=== PATIENT | female | born 1950 | race Caucasian/White ===

== ENCOUNTER 2016-06-04 11:51 | Emergency (ER) | payer OTHER, BC ==
[2016-06-04 12:38] VITALS: BP 141/69; PULSE 91; TEMP 98.4; BMI 32.1
--- NOTE | 2016-06-04 13:27 | PDOC ---
History of Present Illness - General Chief Complaint: Cold Symptoms Stated Complaint: cough, left leg pain, chills Time Seen by Provider: 06/04/16 12:02 History Source: Patient, Old Records Exam Limitations: No Limitations - History of Present Illness Initial Comments: 06/04/16 13:26 65 year old female with past medical history of coronary disease status post stent, congestive heart failure, hypertension, hypothyroidism, von Willebrand's disease, psoriatic arthritis presents to the emergency department at the direction of her wine steward Dr. Brown for evaluation for 3 days of upper respiratory infection-like symptoms. The patient reports of feeling tired and fatigued and with a nonproductive cough. Denies fevers or chills. Also reports 2 days of left lower leg pain. Denies swelling. As of note, in early April, patient has had a total left knee replacement done at [facility]. In early May, patient had developed a pulmonary embolism was started on aspirin and eliquis. She has been adherent to her medications. Her wine steward sent the patient to the ED for an evaluation. 06/04/16 13:27 Pt complained of sore throat as well. Past History - Past Medical History Allergies/Adverse Reactions: Allergies Allergy/AdvReac Type Severity Reaction Status Date / Time ciprofloxacin Allergy Severe Hives Verified 06/04/16 11:52 levofloxacin [From Levaquin] Allergy Severe angioedema Verified 06/04/16 11:52 shellfish derived Allergy Severe Difficulty Verified 06/04/16 11:52 Breathing atorvastatin Allergy Mild Rash Verified 06/04/16 11:52 methotrexate Allergy Mild Nausea Verified 06/04/16 11:52 Penicillins Allergy Mild Hives Verified 06/04/16 11:52 sulfamethoxazole Allergy Mild Rash Verified 06/04/16 11:52 [From Bactrim] trimethoprim [From Bactrim] Allergy Mild Rash Verified 06/04/16 11:52 atorvastatin calcium AdvReac Mild Rash Verified 06/04/16 11:52 [From Lipitor] pravastatin sodium AdvReac Mild Rash Verified 06/04/16 11:52 [From Pravachol] rosuvastatin [Rosuvastatin] AdvReac Mild Rash Verified 06/04/16 11:52 fish AdvReac Swelling Uncoded 06/04/16 11:52 Home Medications: Ambulatory Orders Metoprolol Succinate [Toprol XL -] 25 mg PO DAILY 02/02/14 Potassium Chloride [K-Dur -] 20 meq PO DAILY 11/07/14 Furosemide [Lasix -] 40 mg PO BID@0600,1400 tablet 12/19/15 Levothyroxine [Synthroid -] 25 mcg PO DAILY 12/19/15 Apixaban [Eliquis] 5 mg PO BID 06/04/16 Gabapentin 06/04/16 Tramadol HCl [Ultram -] 50 mg PO PRN PRN 06/04/16 Anemia: No Asthma: No Cancer: No Cardiac Disorders: Yes (VON WILLEBRAND'S,HAD CARDIAC CATH-STENT 2007) CVA: No COPD: No CHF: No Dementia: No Diabetes: No GI Disorders: No Disorders: No HTN: Yes Hypercholesterolemia: No Liver Disease: No Suicide Attempt (Hx): No Seizures: No Thyroid Disease: No Other medical history: pe - Surgical History Abdominal Surgery: No Appendectomy: No Cardiac Surgery: Yes (CARDIAC STENT) Cholecystectomy: No Lung Surgery: No Neurologic Surgery: No Orthopedic Surgery: Yes (BILATERAL KNEE ATHROSCOPIES X2 EACH,RIGHT ROTATOR CUFF REPAIR) - Psycho/Social/Smoking Cessation Hx Anxiety: No Suicidal Ideation: No Smoking Status: No Smoking History: Former smoker Have you smoked in the past 12 months: No Number of Cigarettes Smoked Daily: 0 If you are a former smoker, when did you quit?: 28 YEARS AGO Information on smoking cessation initiated: No Hx Alcohol Use: No Drug/Substance Use Hx: No Substance Use Type: None Hx Substance Use Treatment: No Review of Systems - Review of Systems Able to Perform ROS?: Yes Constitutional: Yes: Symptoms Reported, See HPI HEENTM: No: Symptoms Reported Respiratory: Yes: Symptoms reported, Cough. No: SOB with Exertion, Stridor, Wheezing Cardiac (ROS): No: Symptoms Reported, See HPI, Chest Pain, Edema, Irregular Heart Rate, Lightheadedness, Palpitations, Syncope, Chest Tightness, Other ABD/GI: No: Symptoms Reported, See HPI, Abdominal Distended, Abd. Pain w/ defecation, Blood Streaked Bowels, Constipated, Diarrhea, Difficulty Swallowing , Nausea, Poor Appetite, Poor Fluid Intake, Rectal Bleeding, Vomiting, Indigestion, Abdominal cramping, Tarry Stools, Other : No: Symptoms Reported, See HPI, Burning, Dysuria, Discharge, Frequency, Flank Pain, Hematuria, Incontinence, Pain, Urgency, Testicular Mass, Testicular Swelling, Lesions, Testicular Pain, Other Musculoskeletal: No: Symptoms Reported, See HPI, Back Pain, Gout, Joint Pain, Joint Swelling, Muscle Pain, Muscle Weakness, Neck Pain, Joint Stiffness, Other Integumentary: No: Symptoms Reported, See HPI, Bruising, Change in Color, Change in Hair/Nails, Dryness, Erythema, Flushing, Lesions, Lumps, Pallor, Pruritus, Rash, Sweating, Other Neurological: No: Symptoms reported, See HPI, Headache, Numbness, Paresthesia, Pre-Existing Deficit, Seizure, Tingling, Tremors, Weakness, Unsteady Gait, Ataxia, Dizziness, Other Psychiatric: No: Anxiety, Depression, Frequent Crying, Stressors, Sleep Pattern Change, Emotional Problems, Mood Swings, Change in Appetite, Other Endocrine: No: Symptoms Reported, See HPI, Excessive Sweating, Flushing, Intolerance to Cold, Intolerance to Heat, Increased Hunger, Increased Thirst, Increased Urine, Unexplained Weight Gain, Unexplained Weight Loss, Change in Weight, Other Hematologic/Lymphatic: No: Symptoms Reported, See HPI, Anemia, Blood Clots, Easy Bleeding, Easy Bruising, Bleeding Diathesis, Lymph Node Abnormalities, Swollen Glands, Other *Physical Exam - Vital Signs Last Vital Signs Temp Pulse Resp BP Pulse Ox 98.4 F 91 H 18 141/69 99 06/04/16 11:52 06/04/16 11:52 06/04/16 11:52 06/04/16 11:52 06/04/16 11:52 - Physical Exam General Appearance: Yes: Nourished, Appropriately Dressed. No: Apparent Distress HEENT: positive: EOMI, ALLISON, Pharynx Normal Neck: positive: Supple. negative: Tender Respiratory/Chest: positive: Lungs Clear, Normal Breath Sounds. negative: Chest Tender, Respiratory Distress, Accessory Muscle Use Cardiovascular: positive: Regular Rhythm, Regular Rate, S1, S2. negative: Edema Gastrointestinal/Abdominal: positive: Flat, Soft. negative: Tender, Organomegaly, Pulsatile Mass Rectal Exam: positive: deferred Musculoskeletal: positive: Normal Inspection Extremity: positive: Normal Capillary Refill, Normal Inspection, Normal Range of Motion, Tender, Pelvis Stable Integumentary: positive: Normal Color, Dry, Warm Neurologic: positive: sterilization technician II-XII NML intact, Fully Oriented, Alert, Normal Mood/ Affect, Normal Response, Motor Strength 10/05 ED Treatment Course - LABORATORY CBC & Chemistry Diagram: 06/04/16 13:07 06/04/16 13:07 - ADDITIONAL ORDERS Additional order review: 06/04/16 12:40 Group A Strep Rapid Antigen - Final Throat NEGATIVE FOR THE ANTIGEN OF BETA HEMOLYTIC STREP GROUP A - RADIOLOGY Radiology Studies Ordered: Category Date Time Status CHEST PA & LAT [RAD] Stat Radiology 06/04/16 12:24 Completed Medical Decision Making - Medical Decision Making 06/04/16 13:28 A portion of this note was documented by scribe services under my direction. I have reviewed the details of the note, within reason, and agree with the documentation with the following case summary and management plan written by me. Patient treated in the ED. Nursing notes are reviewed and incorporated into the medical decision-making. Vital signs reviewed. Peripheral IV access obtained by the nurse, laboratory studies are drawn and sent, reviewed and interpreted by myself. Vital Signs Temp Pulse Resp BP Pulse Ox 98.4 F 91 H 18 141/69 99 06/04/16 11:52 06/04/16 11:52 06/04/16 11:52 06/04/16 11:52 06/04/16 11:52 The patient likely presents with a viral syndrome. However, will r/o other acute infectious causes such as strep, PNA, UTI. Labs, chest xray, rapid strep, UA. LLE with pain. Will r/o DVT, though probably unlikely given on eliquis. Will touch base with pt's wine steward DR. Brown with results. 06/04/16 14:20 CBC, BMP 06/04/16 13:07 06/04/16 13:07 CMP Sodium 136 mmol/L (136-145) 06/04/16 13:07 Potassium 3.9 mmol/L (3.5-5.1) 06/04/16 13:07 Chloride 102 mmol/L (98-107) 06/04/16 13:07 Carbon Dioxide 27 mmol/L (22-28) 06/04/16 13:07 Anion Gap 7 (8-16) L 06/04/16 13:07 BUN 17 mg/dl (7-18) 06/04/16 13:07 Creatinine 0.8 mg/dl (0.6-1.3) 06/04/16 13:07 Creat Clearance w eGFR > 60 (>60) 06/04/16 13:07 Random Glucose 103 mg/dl (74-106) 06/04/16 13:07 Calcium 9.8 mg/dl (8.4-10.2) 06/04/16 13:07 Total Bilirubin 0.5 mg/dl (0.2-1.0) D 06/04/16 13:07 AST 23 U/L (10-42) 06/04/16 13:07 ALT 13 U/L (10-40) D 06/04/16 13:07 Alkaline Phosphatase 110 U/L (32-92) H D 06/04/16 13:07 Total Protein 7.9 g/dl (6.4-8.3) 06/04/16 13:07 Albumin 4.7 g/dl (3.5-5.0) 06/04/16 13:07 Urine Test Results Urine Color Yellow 06/04/16 13:07 Urine Appearance Clear 06/04/16 13:07 Urine pH 5.5 (4.5-8) 06/04/16 13:07 Ur Specific [place] 1.010 (1.005-1.025) 06/04/16 13:07 Urine Protein Negative (NEGATIVE) 06/04/16 13:07 Urine Glucose (UA) Negative (NEGATIVE) 06/04/16 13:07 Urine Ketones Negative (NEGATIVE) 06/04/16 13:07 Urine Blood Trace (NEGATIVE) H 06/04/16 13:07 Urine Nitrite Negative (NEGATIVE) 06/04/16 13:07 Urine Bilirubin Negative (NEGATIVE) 06/04/16 13:07 Ur Leukocyte Esterase Negative (NEGATIVE) 06/04/16 13:07 Urine RBC 2-4 /hpf (0-3) 06/04/16 13:07 Urine WBC None seen (3-5) 06/04/16 13:07 Ur Epithelial Cells 3-5 /HPF 06/04/16 13:07 Labs reviewed. Strep negative. Chest xray reviewed and negative. Ultrasound pending, but again low suspicion for DVT and patient already on eliquis. Case discussed with Dr. Brown. She agrees with plan for discharge, supportive care and f/u with PMD. I discussed the physical exam findings, ancillary test results and final diagnoses with the patient. I answered all of the patient's questions. The patient was satisfied with the care received and felt comfortable with the discharge plan and treatment plan. The patient will call their primary care physician within 24 hours to arrange follow-up and will return to the Emergency Department with any new, persistant or worsening symptoms. *DC/Admit/Observation/Transfer Diagnosis at time of Disposition: Viral syndrome - Discharge Dispostion Disposition: HOME Condition at time of disposition: Good Admit: No - Patient Instructions Printed Discharge Instructions: DI for Viral Syndrome Additional Instructions: Please follow up with your primary care physician. Please take a copy of your results to your doctor.
[2016-06-04 13:34] LABS: PH,URINE 5.5 (4.5-8); URINE APPEARANCE Clear; URINE BILIRUBIN Negative (NEGATIVE); URINE GLUCOSE (UA) Negative (NEGATIVE); URINE KETONE Negative (NEGATIVE); URINE LEUK ESTERASE Negative (NEGATIVE); URINE NITRITE Negative (NEGATIVE); URINE PROTEIN Negative (NEGATIVE); URINE UROBILINOGEN 0.2 E.U/dl (0.2-1.0)
[2016-06-04 13:37] LABS: URINE BLOOD TRACE (NEGATIVE); URINE COLOR YELLOW
[2016-06-04 13:40] LABS: EOSINOPHIL 1.7 % (0-4.5); MCH 26.3 pg (25.7-33.7); MCHC 32.6 g/dl (32.0-36.0); MEAN CELL VOLUME 80.4 fl (80-96); MEAN PLT VOLUME 8.6 fl (7.5-11.1); NEUTROPHILS 61.8 % (42.8-82.8); PLATELET COUNT 325 K/MM3 (134-434); WHITE BLOOD COUNT 8.6 K/mm3 (4.0-10.0)
[2016-06-04 13:49] LABS: URINE HYALINE CAST 0-1 /lpf; URINE WBC NONE SEEN (3-5)
[2016-06-04 13:54] LABS: ALBUMIN 4.7 g/dl (3.5-5.0); ALK PHOS 110 U/L (32-92); ANION GAP 7 (8-16); BILIRUBIN,TOTAL 0.5 mg/dl (0.2-1.0); CALCIUM 9.8 mg/dl (8.4-10.2); CO2 27 mmol/L (22-28); CREATININE 0.8 mg/dl (0.6-1.3); GLUCOSE,RANDOM 103 mg/dl (74-106); SGOT/AST 23 U/L (10-42); SGPT/ALT 13 U/L (10-40); TOT PROT 7.9 g/dl (6.4-8.3)
== END 2016-06-04 14:35 | disposition home or self-care (01) ==
LOC: FER 11:51
DX: B34.9 Viral infection, unspecified (principal); Z79.01 Long term (current) use of anticoagulants; I10 Essential (primary) hypertension; D68.0 Von Willebrand disease; Z95.5 Presence of coronary angioplasty implant and graft; Z87.891 Personal history of nicotine dependence
CPT/HCPCS: 36415; 71020-TC; 80053; 81003; 81015; 85025; 87070; 87086; 87430; 93971-TC; 99282-25

== ENCOUNTER 2016-06-25 12:25 | Emergency (ER) | payer OTHER, BC ==
[2016-06-25 12:58] VITALS: BP 130/80; PULSE 100; TEMP 97.9; BMI 30.5
[2016-06-25] MEDS ORDERED: ACETAMINOPHEN 325 MG TABLET (FP) PO ONE (13:15)
[2016-06-25] MEDS ORDERED: METOCLOPRAMIDE HCL INJECTION 10 MG/2 ML VIAL IVPB ONE (13:15)
[2016-06-25] MEDS ORDERED: ACETAMINOPHEN 325 MG TABLET (FP) ONE (13:20)
--- NOTE | 2016-06-25 13:33 | PDOC ---
History of Present Illness - General Chief Complaint: Headache Stated Complaint: HEADACHE Time Seen by Provider: 06/25/16 12:50 History Source: Patient Exam Limitations: No Limitations - History of Present Illness Initial Comments: 06/25/16 13:28 65 year old female with past medical history of coronary disease status post stent, congestive heart failure, hypertension, hypothyroidism Presents to the emergency department for right-sided headache. The patient had an episode of right nostril epistaxis yesterday that to an hour and a half to resolved with pressure. She had another small episode earlier today. However, earlier this morning, she started developing right pressure-like headache with associated photophobia. Reports to 5 out of 10 pain. Was a gradual onset. Patient has of note does have a history of migraines. She is adherent to her eliquis since she was diagnosed with an pulmonary embolism several months ago. She also currently takes aspirin. Past History - Past Medical History Allergies/Adverse Reactions: Allergies Allergy/AdvReac Type Severity Reaction Status Date / Time ciprofloxacin Allergy Severe Hives Verified 06/25/16 12:49 levofloxacin [From Levaquin] Allergy Severe angioedema Verified 06/25/16 12:49 shellfish derived Allergy Severe Difficulty Verified 06/25/16 12:49 Breathing atorvastatin Allergy Mild Rash Verified 06/25/16 12:49 methotrexate Allergy Mild Nausea Verified 06/25/16 12:49 Penicillins Allergy Mild Hives Verified 06/25/16 12:49 sulfamethoxazole Allergy Mild Rash Verified 06/25/16 12:49 [From Bactrim] trimethoprim [From Bactrim] Allergy Mild Rash Verified 06/25/16 12:49 atorvastatin calcium AdvReac Mild Rash Verified 06/25/16 12:49 [From Lipitor] pravastatin sodium AdvReac Mild Rash Verified 06/25/16 12:49 [From Pravachol] rosuvastatin [Rosuvastatin] AdvReac Mild Rash Verified 06/25/16 12:49 rosuvastatin calcium AdvReac Verified 06/25/16 12:49 [From Crestor] fish AdvReac Swelling Uncoded 06/25/16 12:49 Home Medications: Ambulatory Orders Metoprolol Succinate [Toprol XL -] 25 mg PO DAILY 02/02/14 Potassium Chloride [K-Dur -] 20 meq PO DAILY 11/07/14 Levothyroxine [Synthroid -] 25 mcg PO DAILY 12/19/15 Apixaban [Eliquis] 2.5 mg PO BID 06/04/16 Aspirin [Aspirin EC] 81 mg PO DAILY 06/25/16 Furosemide [Lasix -] 40 mg PO DAILY 06/25/16 Anemia: No Asthma: No Cancer: No Cardiac Disorders: Yes (VON WILLEBRAND'S,HAD CARDIAC CATH-STENT 2007) CVA: No COPD: No CHF: No Dementia: No Diabetes: No GI Disorders: No Disorders: No HTN: Yes Hypercholesterolemia: No Liver Disease: No Suicide Attempt (Hx): No Seizures: No Thyroid Disease: No Other medical history: PE OF RIGHT LUNG - Surgical History Abdominal Surgery: No Appendectomy: No Cardiac Surgery: Yes (CARDIAC STENT) Cholecystectomy: No Lung Surgery: No Neurologic Surgery: No Orthopedic Surgery: Yes (BILATERAL KNEE ATHROSCOPIES X2 EACH,RIGHT ROTATOR CUFF REPAIR) - Psycho/Social/Smoking Cessation Hx Anxiety: No Suicidal Ideation: No Smoking Status: No Smoking History: Former smoker Have you smoked in the past 12 months: No Number of Cigarettes Smoked Daily: 0 If you are a former smoker, when did you quit?: 35 YRS AGO Information on smoking cessation initiated: No Hx Alcohol Use: No Drug/Substance Use Hx: No Substance Use Type: None Hx Substance Use Treatment: No Review of Systems - Review of Systems Able to Perform ROS?: Yes Comments:: 06/25/16 13:32 GENERAL/CONSTITUTIONAL: No fever, weakness. HEAD, EYES, EARS, NOSE AND THROAT: No change in vision. No ear pain or discharge. No sore throat. +epistaxis CARDIOVASCULAR: No chest pain or shortness of breath. RESPIRATORY: No cough, wheezing, or hemoptysis. GASTROINTESTINAL: No abdominal pain, nausea, vomiting, diarrhea, or decreased PO intolerance. GENITOURINARY: No dysuria, frequency, or change in urination. MUSCULOSKELETAL: No joint or muscle swelling or pain. No neck or back pain. SKIN: No rash NEUROLOGIC: +headache. No vertigo, loss of consciousness, or change in strength/ sensation. ENDOCRINE: No increased thirst. No abnormal weight change. HEMATOLOGIC/LYMPHATIC: No anemia, easy bleeding, or history of blood clots. ALLERGIC/IMMUNOLOGIC: No hives or skin allergy. *Physical Exam - Vital Signs Last Vital Signs Temp Pulse Resp BP Pulse Ox 97.9 F 100 H 18 130/80 98 06/25/16 12:25 06/25/16 12:25 06/25/16 12:25 06/25/16 12:25 06/25/16 12:25 - Physical Exam Comments: 06/25/16 13:32 GENERAL: Awake, alert, and fully oriented, in no acute distress. HEAD: No signs of trauma EYES: PERRLA, EOMI, sclera anicteric, conjunctiva clear ENT: Auricles normal inspection, hearing grossly normal, nares patent, oropharynx clear without exudates. Nostrils with some mild irritation of the right interior septum. No bleeding at this time. NECK: Normal ROM, supple, no lymphadenopathy, JVD, or masses LUNGS: Breath sounds equal, clear to auscultation bilaterally. No wheezes, and no crackles HEART: Regular rate and rhythm, normal S1 and S2, no murmurs, rubs or gallops ABDOMEN: Soft, nontender, normoactive bowel sounds. No guarding, no rebound. No masses EXTREMITIES: Normal range of motion, no edema. No clubbing or cyanosis. No cords, erythema, or tenderness NEUROLOGICAL: Cranial nerves II through XII intact. Normal speech, normal gait. No pronator drift. Sensation intact throughout. 5/5 strength upper and lower extremities. SKIN: Warm, Dry, normal turgor, no rashes or lesions noted. ED Treatment Course - LABORATORY CBC & Chemistry Diagram: 06/25/16 13:30 06/25/16 13:30 - RADIOLOGY Radiology Studies Ordered: Category Date Time Status HEAD CT WITHOUT CONTRAST [CT] Stat CT Scan 06/25/16 13:15 Ordered Medical Decision Making - Medical Decision Making 06/25/16 13:33 A portion of this note was documented by scribe services under my direction. I have reviewed the details of the note, within reason, and agree with the documentation with the following case summary and management plan written by me. Patient treated in the ED. Nursing notes are reviewed and incorporated into the medical decision-making. Vital signs reviewed. Peripheral IV access obtained by the nurse, laboratory studies are drawn and sent, reviewed and interpreted by myself. Vital Signs Temp Pulse Resp BP Pulse Ox 97.9 F 100 H 18 130/80 98 06/25/16 12:25 06/25/16 12:25 06/25/16 12:25 06/25/16 12:25 06/25/16 12:25 I suspect that the patient is likely having a migraine. However, with the epistaxis (now resolved) and on eliquis and hx of von Willebrand's, will obtain a head CT to r/o ICH. Labs, treat headache and reassess. 06/25/16 14:39 CBC, BMP 06/25/16 13:30 06/25/16 13:30 CMP Sodium 139 mmol/L (136-145) 06/25/16 13:30 Potassium 4.1 mmol/L (3.5-5.1) 06/25/16 13:30 Chloride 107 mmol/L (98-107) 06/25/16 13:30 Carbon Dioxide 29 mmol/L (22-28) H 06/25/16 13:30 Anion Gap 3 (8-16) L 06/25/16 13:30 BUN 19 mg/dl (7-18) H 06/25/16 13:30 Creatinine 0.7 mg/dl (0.6-1.3) 06/25/16 13:30 Creat Clearance w eGFR > 60 (>60) 06/25/16 13:30 Random Glucose 111 mg/dl (74-106) H 06/25/16 13:30 Calcium 9.3 mg/dl (8.4-10.2) 06/25/16 13:30 Total Bilirubin 0.3 mg/dl (0.2-1.0) D 06/25/16 13:30 AST 19 U/L (10-42) 06/25/16 13:30 ALT 15 U/L (10-40) 06/25/16 13:30 Alkaline Phosphatase 104 U/L (32-92) H 06/25/16 13:30 Total Protein 7.2 g/dl (6.4-8.3) 06/25/16 13:30 Albumin 4.2 g/dl (3.5-5.0) 06/25/16 13:30 CT head with no bleeds. Stable meningioma. The patient's results were given to the patient. She reports feeling significantly better including her photophobia. I suspect that this is a migraine. The results of the meningioma was given to the patient. I have discussed the case with patient's doctor, Dr. Pablo, was reassured by the imaging results. She states that the patient can hold off on her Eliquis dose tonight but continue taking baby aspirin and they will discuss tomorrow regarding further dosing. Patient verbalizes understanding agrees with plan. Return precautions given. I discussed the physical exam findings, ancillary test results and final diagnoses with the patient. I answered all of the patient's questions. The patient was satisfied with the care received and felt comfortable with the discharge plan and treatment plan. The patient will call their primary care physician within 24 hours to arrange follow-up and will return to the Emergency Department with any new, persistant or worsening symptoms. *DC/Admit/Observation/Transfer Diagnosis at time of Disposition: Epistaxis Migraine Qualifiers: Migraine type: other Status migrainosus presence: without status migrainosus Intractability: not intractable Qualified Code(s): G43.809 - Other migraine, not intractable, without status migrainosus - Discharge Dispostion Disposition: HOME Condition at time of disposition: Stable Admit: No - Referrals Referrals: Mac Renner MD [Primary Care Provider] - - Patient Instructions Printed Discharge Instructions: DI for Migraine, DI for Nosebleed Additional Instructions: Please hold off on the dose of eliquis tonight. Continue taking the baby aspirin daily. Your head CT shows no bleeds but a stable meningioma. Follow up with DR. Pablo. Use a humidifier. If you have uncontrollable bleeding or headache, please return to the ER for further evaluation.
[2016-06-25 13:51] LABS: BASOPHIL 0.9 % (0-2.0); EOSINOPHIL 3.3 % (0-4.5); MCH 25.7 pg (25.7-33.7); MCHC 32.2 g/dl (32.0-36.0); MEAN CELL VOLUME 79.9 fl (80-96); MEAN PLT VOLUME 8.5 fl (7.5-11.1); NEUTROPHILS 58.7 % (42.8-82.8); PLATELET COUNT 322 K/MM3 (134-434); RDW 13.6 % (11.6-15.6); WHITE BLOOD COUNT 8.2 K/mm3 (4.0-10.0)
[2016-06-25 14:07] LABS: ALBUMIN 4.2 g/dl (3.5-5.0); ALK PHOS 104 U/L (32-92); ANION GAP 3 (8-16); BILIRUBIN,TOTAL 0.3 mg/dl (0.2-1.0); CALCIUM 9.3 mg/dl (8.4-10.2); CO2 29 mmol/L (22-28); CREATININE 0.7 mg/dl (0.6-1.3); GLUCOSE,RANDOM 111 mg/dl (74-106); SGOT/AST 19 U/L (10-42); SGPT/ALT 15 U/L (10-40); TOT PROT 7.2 g/dl (6.4-8.3)
[2016-06-25 15:02] LABS: ACTIVATED PTT 29.1 SECONDS (24.0-38.9)
[2016-06-25 15:06] LABS: INR 1.26 (0.82-1.09); PROTHROMBIN TIME (PATIENT) 13.7 SEC (10.2-13.0)
== END 2016-06-25 14:41 | disposition home or self-care (01) ==
LOC: FER 12:25
PROC: 3E033GC Introduction of Other Therapeutic Substance into Peripheral Vein, Percutaneous Approach (ICD-10-PCS; principal; 2016-06-25)
DX: G43.809 Other migraine, not intractable, without status migrainosus (principal); R04.0 Epistaxis; Z79.82 Long term (current) use of aspirin; Z79.01 Long term (current) use of anticoagulants; Z86.711 Personal history of pulmonary embolism; D68.0 Von Willebrand disease; Z95.5 Presence of coronary angioplasty implant and graft; I10 Essential (primary) hypertension
CPT/HCPCS: 36415; 70450-TC; 80053; 85025; 85610; 85730; 96374; 99283-25

== ENCOUNTER 2017-10-05 14:41 | Observation (INO) | payer OTHER, BC ==
--- NOTE | 2017-10-05 15:40 | PDOC ---
History of Present Illness - General Stated Complaint: HEADACHE AND VISION CHANGE Time Seen by Provider: 10/05/17 14:46 History Source: Patient Exam Limitations: No Limitations - History of Present Illness Initial Comments: 10/05/17 15:46 67yF hx of VWB, Post op PE now off AC, CAD s/p stent in LAD in 2007, HTN, CHF, hyopthryidism presenst with complaint of headache. The patient states that her headache feels like a band around her temples bilaterally and has been intermittent, gradual onset for the past week lasting approximately one to several hours before resolving spontaneously, the patient take a Tylenol without significant improvement. She endorses mild nausea without any vomiting. The patient notes that approximately 3 hours ago she had a brief episode of loss of vision "centrally" and then it migrated to the right visual field, scribing and as a" pixilated [place]" on her right visual field on both left eye and the right eye, she states that the symptoms gradually improved slightly and then recurred again and now has improved again although it is not completely resolved. The patient denies complete vision loss that side just states that it looks like a "pixilated [place]". The patient also endorses a weird sensation around her mouth, though denies any dysarthria. The patient notes possibility of mild sensation loss on her left hand. Patient also endorses some palpitations and notes that she is currently being worked up for possible A. 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 The patient states that on the way to the hospital she developed mild substernal chest pressure with some intermittent shortness of breath. Patient denies any associated diaphoresis, MCADAMS. The patient's primary care doctor is Dr. Renner Cards: Dr. Montes tPA Exclusion Checklist 0-3hr - Time Elapsed Date last known well: 10/05/17 Time last known well: 12:00 Elaspsed time: 4 Day(s) and 20 Hour(s) and 26 Minutes - Thrombolytic Therapy Candidate Is the patient eligible for Thrombolytic Therapy?: No - Relative Exclusion Criteria 0-3h Rapid improvement: Yes Stroke severity too mild: Yes - Ineligibility reason(s) Reasons No tPA given: See reason(s) noted above NIH Stroke Scale - Last Known Well Date/Time & Onset Date Last Known Well: 10/05/17 Time Last Known Well: 12:00 - Initial Evaluation Level of consciousness: Alert Ask patient the month and their age: Answers both correctly Ask patient to open & close eyes; make fist and let go: Obeys both correctly Best gaze (horizontal eye movement): Normal Visual field testing: No visual field loss Facial paresis (Show teeth/raise eyebrows/close eyes tight): Normal symmetrical movement Motor Function: Left Arm: Normal Motor Function: Right Arm: Normal (extends arm 90 (or 45) degrees for 10 seconds without drift Motor Function: Left Leg: Normal (extends leg 30 degrees for 5 seconds without drift) Motor Function: Right Leg: Normal (extends leg 30 degrees for 5 seconds without drift) Limb Ataxia: No ataxia Sensory(Use pinprick test arms,legs,trunk,face/side to side): Mild to moderate decrease in sensation Best language (Describe picture, name items, read sentences): No Aphasia Dysarthria (read several words): Normal articulation Extinction and Inattention: No abnormality - Total Score NIH Stroke Scale Score: 1 Past History - Past Medical History Allergies/Adverse Reactions: Allergies Allergy/AdvReac Type Severity Reaction Status Date / Time ciprofloxacin Allergy Severe Hives Verified 10/05/17 14:57 levofloxacin [From Levaquin] Allergy Severe angioedema Verified 10/05/17 14:57 shellfish derived Allergy Severe Difficulty Verified 10/05/17 14:57 Breathing atorvastatin Allergy Mild Rash Verified 10/05/17 14:57 methotrexate Allergy Mild Nausea Verified 10/05/17 14:57 Penicillins Allergy Mild Hives Verified 10/05/17 14:57 sulfamethoxazole Allergy Mild Rash Verified 10/05/17 14:57 [From Bactrim] trimethoprim [From Bactrim] Allergy Mild Rash Verified 10/05/17 14:57 atorvastatin calcium AdvReac Mild Rash Verified 10/05/17 14:57 [From Lipitor] pravastatin sodium AdvReac Mild Rash Verified 10/05/17 14:57 [From Pravachol] rosuvastatin [Rosuvastatin] AdvReac Mild Rash Verified 10/05/17 14:57 rosuvastatin calcium AdvReac Verified 10/05/17 14:57 [From Crestor] fish AdvReac Swelling Uncoded 10/05/17 14:57 Home Medications: Ambulatory Orders Metoprolol Succinate [Toprol XL -] 25 mg PO BID 02/02/14 Potassium Chloride [K-Dur -] 10 meq PO DAILY 11/07/14 Levothyroxine [Synthroid -] 25 mcg PO DAILY 12/19/15 Aspirin [Aspirin EC] 81 mg PO DAILY 06/25/16 Furosemide [Lasix -] 40 mg PO DAILY 06/25/16 Pramipexole Dihydrochloride [Mirapex -] 0.125 mg PO DAILY #30 tablet 10/06/17 Topiramate 25 mg PO DAILY #60 tablet 10/06/17 Anemia: No Asthma: No Cancer: No Cardiac Disorders: Yes (VON WILLEBRAND'S,HAD CARDIAC CATH-STENT 2007) CVA: No COPD: No CHF: No Dementia: No Diabetes: No GI Disorders: No Disorders: No HTN: Yes Hypercholesterolemia: No Liver Disease: No Seizures: No Thyroid Disease: No - Surgical History Abdominal Surgery: No Appendectomy: No Cardiac Surgery: Yes (CARDIAC STENT) Cholecystectomy: No Lung Surgery: No Neurologic Surgery: No Orthopedic Surgery: Yes (BILATERAL KNEE ATHROSCOPIES X2 EACH,RIGHT ROTATOR CUFF REPAIR) - Suicide/Smoking/Psychosocial Hx Smoking Status: No Smoking History: Former smoker Have you smoked in the past 12 months: No Number of Cigarettes Smoked Daily: 0 If you are a former smoker, when did you quit?: 35 YRS AGO Information on smoking cessation initiated: No Hx Alcohol Use: No Drug/Substance Use Hx: No Substance Use Type: None Hx Substance Use Treatment: No Review of Systems - Review of Systems Able to Perform ROS?: Yes Comments:: 10/05/17 15:46 Constitutional - no reported Fever, Chills, HEENT: +vision changes no reported , sore throat Respiratory: + sob no reported cough, , hemoptysis Cardiac: + chest pain no reported, palpitations, light headedness, leg swelling Abd/GI: +nausea, no reported abd pain, vomiting, blood per rectum, melena, diarrhea : no reported dysuria, frequency, discharge Musculskelatal - no reported back pain, joint swelling skin - no reported bruising, erythema, rash neurological: +headache no reported , numbness, focal weakness, tingling, ataxia, hematologic: no reported easy bruising, easy bleeding *Physical Exam - Vital Signs Last Vital Signs Temp Pulse Resp BP Pulse Ox 98.8 F 93 H 18 108/64 100 10/05/17 14:51 10/05/17 14:51 10/05/17 14:51 10/05/17 14:51 10/05/17 14:51 - Physical Exam Comments: 10/05/17 15:48 GENERAL: The patient is awake, alert, and fully oriented, Nontoxic - in no acute distress. HEAD: Normocephalic, atraumatic. EYES: extraocular movements intact, sclera anicteric, conjunctiva clear. Visual mccracken intact in each quadrant (although the patient notes at vision in her right visual field is not normal) ENT: Normal voice, Moist mucous membranes. NECK: Normal range of motion, supple LUNGS: Breath sounds equal, clear to auscultation bilaterally. No wheezes, no rhonchi, no rales. HEART: Regular rate and rhythm, normal S1 and S2 without murmur, rub or gallop. ABDOMEN: Soft, nontender, normoactive bowel sounds. No guarding, no rebound. No CVA tenderness EXTREMITIES: Normal range of motion, no edema. No clubbing or cyanosis. No cords, erythema, or tenderness. NEUROLOGICAL: No facial assymetry, Normal speech, PSYCH: Normal mood, normal affect. SKIN: Warm, Dry, normal turgor, NEURO: Mental status: The patient is oriented x3. Cranial nerves: No facial asymmetry, cranial nerve exam essentially normal except for mild loss of sensation in the right cheek Motor: The upper extremities are 5 over 5 in all muscle groups. The lower extremities are 5 over 5 in all muscle groups. Negative pronator drift. Sensation: Sensation is intact to light touch throughout. Cerebellar: Ybjhao-enqdjn-eeds is normal in both upper extremities. Gait: Normal. Heel and toe walking are normal. Tandem gait is normal. ED Treatment Course - LABORATORY CBC & Chemistry Diagram: 10/05/17 15:41 10/06/17 07:37 Medical Decision Making - Medical Decision Making 10/05/17 15:31 67yF hx of VWB, Post op PE now off AC, CAD s/p stent in LAD in 2007, HTN, CHF, hyopthryidism presents with multiple complaints including headache, visual disturbance, tingling/numbness in her left upper extremity, chest pain, shortness of breath. Her exam is notable for some subjective visual disturbance in the right visual field as well as diminished sensation in her right cheek and right hand Differential for the [place] patient's symptoms include possible migraine headache with complex features, TIA/CVA, ACS, A. fib, anemia, metabolic derangements, occult infection Will check lab work, EKG, chest x-ray, ua, CT head Place the patient on a monitor Case was discussed with Dr. Montes, agrees that in light of the patient's recent complaint of palpitations and recent Holter monitoring for which she has not yet received results may be prudent to observe the patient for possible TIA with neuro consult The patient's CT has negative we'll give the patient aspirin 10/05/17 17:37 The patient's blood work was reviewed Head is negative for acute changes The patient's EKG noted for sinus rhythm with PVCs Observe for neuro consultation 10/05/17 18:[address] Allen - agree with observation tele will trend trops will consult neuro Case discussed in detail with admitting physician including history, physical exam and ancillary studies. Admitting physician has assumed care for the patient, will follow all pending diagnostics and will complete the evaluation and treatment. *DC/Admit/Observation/Transfer Diagnosis at time of Disposition: Vision changes Chest pain Qualifiers: Chest pain type: unspecified Qualified Code(s): R07.9 - Chest pain, unspecified Headache Qualifiers: Headache type: unspecified Headache chronicity pattern: acute headache Intractability: not intractable Qualified Code(s): R51 - Headache - Discharge Dispostion Disposition: HOME Condition at time of disposition: Stable Decision to Admit order: Yes - Prescriptions - Referrals - Patient Instructions - Post Discharge Activity
[2017-10-05] MEDS ORDERED: METOCLOPRAMIDE HCL INJECTION 10 MG/2 ML VIAL IVPUSH ONE (15:41)
[2017-10-05 15:57] LABS: BASO % 0.9 % (0-2.0); EOS % 2.7 % (0-4.5); HEMATOCRIT 38.4 % (32.4-45.2); HEMOGLOBIN 12.9 GM/dl (10.7-15.3); LYMPH % 24.2 % (8-40); MCH 27.7 pg (25.7-33.7); MCHC 33.7 g/dl (32.0-36.0); MEAN CELL VOLUME 82.2 fl (80-96); MEAN PLT VOLUME 7.9 fl (7.5-11.1); MONO % 7.4 % (3.8-10.2); NEUT % 64.8 % (42.8-82.8); PLATELET COUNT 340 K/MM3 (134-434); RBC 4.66 M/mm3 (3.60-5.2); RDW 13.2 % (11.6-15.6); WHITE BLOOD COUNT 8.4 K/mm3 (4.0-10.8)
[2017-10-05 16:09] LABS: ALBUMIN 4.2 g/dl (3.5-5.0); ALK PHOS 103 U/L (32-92); ANION GAP 6 (8-16); BILIRUBIN,TOTAL 0.5 mg/dl (0.2-1.0); BLOOD UREA NITROGEN 20 mg/dl (7-18); CALCIUM 9.7 mg/dl (8.4-10.2); CHLORIDE 99 mmol/L (98-107); CO2 30 mmol/L (22-28); CREATININE 0.8 mg/dl (0.6-1.3); GLUCOSE,RANDOM 109 mg/dl (74-106); INR 1.13 (0.82-1.09); POTASSIUM 3.8 mmol/L (3.5-5.1); PROTHROMBIN TIME (PATIENT) 12.6 SEC (10.2-13.0); SGOT/AST 19 U/L (10-42); SGPT/ALT 16 U/L (10-40); SODIUM 135 mmol/L (136-145); TOT PROT 7.1 g/dl (6.4-8.3)
--- NOTE | 2017-10-05 19:35 | HP ---
CHIEF COMPLAINT: PCP: Dr. Renner Cardiology: Dr. Montes Roller Printing Supervisor: Dr. Pablo HISTORY OF PRESENT ILLNESS: 67 year-old female with a PMH significant for HTN, HLD, CAD s/p stent (2007), diastolic heart failure, migraines, Von Willenbrand's disease, pulmonary embolism (05/2016, following knee surgery), psoriatic arthritis, and hypothyroidism. Presented to the ED today with a complaint of bilateral temporal headache, intermittent, for the past week, with associated nausea, no vomiting. Three hours before presenting to the ED, while cleaning a closet, the patient reportedly experienced visual disturbance first "centrally" in both eyes , and then in the right visual field of both eyes, which she described as a "pixilated crescent, from 6 to 9." On her way to the hospital she developed mild substernal chest pressure with SOB. Patient further complains of mild sensation loss circumferentially around her mouth. At this time she denies having experienced any symptoms involving her upper or lower extremities. Patient also states she has intermittent palpitations for which she is seeing Dr. Montes. In the past week she wore a Holter monitor, the results have not yet been read. Patient not presently on anticoagulation. After she developed PE in 05/2016, she was placed on ASA and Eliquis by Dr. Pablo. She states she experienced many nosebleeds. Dr. Pablo decided to d/c Eliquis in the first week in August 2017, and her IVC filter was removed in the last week of August 2017. She continues on low-dose ASA. ER course was notable for: (1) Troponin neg x 1 (2) CT head negative for acute pathology (3) MRI brain normal study (Imaging operations lieutenant read) Recent Travel: No PAST MEDICAL HISTORY: Hypertension Hyperlipidemia Coronary artery disease Diastolic heart failure Migraines Von Willebrand disease Pulmonary embolism Psoriatic arthritis Hypothyroidism PAST SURGICAL HISTORY: Cardiac stenting Appendectomy (12/14/15, [facility]) Total left knee replacement (04/2016, [facility]) Social History: Smoking: quit 30 years ago Alcohol: no Drugs: no Family History: Allergies ciprofloxacin Allergy (Severe, Verified 10/05/17 14:57) Hives angio edema levofloxacin [From Levaquin] Allergy (Severe, Verified 10/05/17 14:57) angioedema shellfish derived Allergy (Severe, Verified 10/05/17 14:57) Difficulty Breathing hives atorvastatin Allergy (Mild, Verified 10/05/17 14:57) Rash body stiffness methotrexate Allergy (Mild, Verified 10/05/17 14:57) Nausea diarrhea,tender Penicillins Allergy (Mild, Verified 10/05/17 14:57) Hives sulfamethoxazole [From Bactrim] Allergy (Mild, Verified 10/05/17 14:57) Rash trimethoprim [From Bactrim] Allergy (Mild, Verified 10/05/17 14:57) Rash atorvastatin calcium [From Lipitor] Adverse Reaction (Mild, Verified 10/05/17 14 :57) Rash "body stiffness" pravastatin sodium [From Pravachol] Adverse Reaction (Mild, Verified 10/05/17 14 :57) Rash gi upset rosuvastatin [Rosuvastatin] Adverse Reaction (Mild, Verified 10/05/17 14:57) Rash body stiffness rosuvastatin calcium [From Crestor] Adverse Reaction (Verified 10/05/17 14:57) VISUAL SX fish Adverse Reaction (Uncoded 10/05/17 14:57) Swelling HOME MEDICATIONS: Home Medications Medication Instructions Recorded Metoprolol Succinate [Toprol XL -] 25 mg PO BID 02/02/14 Potassium Chloride [K-Dur -] 10 meq PO DAILY 11/07/14 Levothyroxine [Synthroid -] 25 mcg PO DAILY 12/19/15 Aspirin [Aspirin EC] 81 mg PO DAILY 06/25/16 Furosemide [Lasix -] 40 mg PO DAILY 06/25/16 REVIEW OF SYSTEMS CONSTITUTIONAL: Absent: fever, chills, diaphoresis, generalized weakness, malaise, loss of appetite, weight change HEENT: Absent: rhinorrhea, nasal congestion, throat pain, throat swelling, difficulty swallowing, mouth swelling, ear pain, eye pain, visual changes CARDIOVASCULAR: +palpitations, chest pressure with SOB Absent: syncope, irregular heart rate, lightheadedness, peripheral edema RESPIRATORY: Absent: cough, shortness of breath, dyspnea with exertion, orthopnea, wheezing, stridor, hemoptysis GASTROINTESTINAL: Absent: abdominal pain, abdominal distension, nausea, vomiting, diarrhea, constipation, melena, hematochezia GENITOURINARY: Absent: dysuria, frequency, urgency, hesitancy, hematuria, flank pain, genital pain MUSCULOSKELETAL: Absent: myalgia, arthralgia, joint swelling, back pain, neck pain SKIN: Absent: rash, itching, pallor HEMATOLOGIC/IMMUNOLOGIC: Absent: easy bleeding, easy bruising, lymphadenopathy, frequent infections ENDOCRINE: Absent: unexplained weight gain, unexplained weight loss, heat intolerance, cold intolerance NEUROLOGIC: +bilateral visual changes, headache, paresthesia circumferentially around the mouth Absent: focal weakness, dizziness, unsteady gait, seizure, mental status changes , bladder or bowel incontinence PSYCHIATRIC: Absent: anxiety, depression, suicidal or homicidal ideation, hallucinations. PHYSICAL EXAMINATION Vital Signs - 24 hr 10/05/17 10/05/17 10/05/17 14:51 18:39 19:26 Temperature 98.8 F Pulse Rate 93 H Pulse Rate [ 100 H 92 H Left Radial] Respiratory 18 16 18 Rate Blood Pressure 108/64 Blood Pressure 115/71 121/80 [Right Arm] O2 Sat by Pulse 100 98 98 Oximetry (%) GENERAL: Awake, alert, and fully oriented, in no acute distress. HEAD: Normal with no signs of trauma. EYES: Pupils equal, round and reactive to light, extraocular movements intact, sclera anicteric, conjunctiva clear. No lid lag. NECK: Normal range of motion, supple without lymphadenopathy, JVD, or masses. LUNGS: Breath sounds equal, clear to auscultation bilaterally. No wheezes, and no crackles. No accessory muscle use. HEART: Regular rate and rhythm, normal S1 and S2 without murmur, rub or gallop. ABDOMEN: Soft, nontender, not distended, normoactive bowel sounds, no guarding, no rebound MUSCULOSKELETAL: Normal range of motion at all joints. No bony deformities or tenderness. No CVA tenderness. UPPER EXTREMITIES: 2+ pulses, warm, well-perfused. No cyanosis. No clubbing. No peripheral edema. LOWER EXTREMITIES: 2+ pulses, warm, well-perfused. No calf tenderness. Trace bilateral edema NEUROLOGICAL: Cranial nerves II-XII intact. Normal speech. Normal gait. Laboratory Results - last 24 hr 10/05/17 10/05/17 10/05/17 15:41 15:41 15:41 WBC 8.4 RBC 4.66 Hgb 12.9 Hct 38.4 MCV 82.2 MCH 27.7 MCHC 33.7 RDW 13.2 Plt Count 340 MPV 7.9 Neutrophils % 64.8 Lymphocytes % 24.2 Monocytes % 7.4 Eosinophils % 2.7 Basophils % 0.9 PT with INR 12.6 INR 1.13 Sodium 135 L Potassium 3.8 Chloride 99 Carbon Dioxide 30 H Anion Gap 6 L BUN 20 H Creatinine 0.8 Creat Clearance w eGFR > 60 Random Glucose 109 H Calcium 9.7 Total Bilirubin 0.5 D AST 19 ALT 16 Alkaline Phosphatase 103 H Creatine Kinase 86 Troponin I < 0.03 Total Protein 7.1 Albumin 4.2 Imaging 10/05 CT head: no acute intracranial pathology 10/05 MRI brain: normal study ASSESSMENT/PLAN 67 year-old female with a PMH significant for HTN, HLD, CAD s/p stent (2007), diastolic heart failure, migraines, Von Willenbrand's disease, pulmonary embolism (05/2016, following knee surgery), and psoriatic arthritis. Placed on observation for multiple complaints. Atypical chest pain Palpitations --troponin neg x 1, two pending --CXR unremarkable (my read) --serial ECGs --telemetry monitoring --Dr. Montes following, ongoing workup, Holter monitor results penidng --continue ASA r/o TIA v. CVA --CT head negative --MRI brain negative --discussed anti-coagulation with Dr. Rosales given circumstances of VWD, negative CT and MRI, palpitations (ongoing workup for afib) and h/o PE; he advised ASA only Bilateral temporal headache h/o migraines --with visual changes and nausea, possible migraine with aura --fioricet PRN --neuro consult pending Hypertension --BP stable Hyperlipdemia --not on statin Coronary artery disease --continue metoprolol, ASA Diastolic heart failure --continue lasix, potassium Von Willenbrand's disease --no acute issues Psoriatic arthritis --appears to be on no meds Hypothyroidism --TSH pending --continue levothyroxine DVT prophylaxis: SCDs, oob, ambulation Dispo: continues to require observation. Full code. Visit type - Emergency Visit Emergency Visit: Yes ED Registration Date: 10/05/17 Care time: The patient presented to the Emergency Department on the above date and was hospitalized for further evaluation of their emergent condition. - New Patient This patient is new to me today: Yes Date on this admission: 10/06/17 - Critical Care Critical Care patient: No Hospitalist Screening - Colonoscopy Questionnaire Colonoscopy Questionnaire: Colonoscopy Questionnaire - Patient: 50 - 75 years old and never had a screening colonoscopy: Unknown History of colon or rectal polyps, or CA: No History of IBD, Crohn's disease or UC: No History of abdominal radiation therapy as a child: No - Relative: 1 with colon or rectal CA, or polyps at age 60 or younger: Unknown Colon or rectal CA diagnosed at age 45 or younger: Unknown Multiple relatives with colon or rectal CA: Unknown - Outcome: Screening Result: Negative Screen
[2017-10-05] MEDS ORDERED: metoPROLOL SUCCINATE 25 MG TAB.SR.24H (FP) PO SCH (22:00)
[2017-10-05 23:10] VITALS: BMI 32.0
[2017-10-05] MEDS: metoPROLOL SUCCINATE 25 MG TAB.SR.24H (FP) PO SCH (23:32)
[2017-10-05] MEDS ORDERED: ACETAMINOPHEN/CAFFEINE/BUTALBITAL 1 TAB PO PRN (23:38)
[2017-10-06] MEDS ORDERED: HEPARIN NA (PORCINE) 5,000 UNITS/ML 1ML VIAL SQ SCH (06:00)
[2017-10-06 06:49] VITALS: TEMP 98.4
[2017-10-06] MEDS ORDERED: LEVOTHYROXINE NA 25 MCG TABLET (FP) PO SCH (07:00)
--- NOTE | 2017-10-06 08:28 | CON.CARD ---
Cardiology Consult (text) - Consultation Consultation Note: Cardiology Consult ER course, vitals, labs and imaging reviewed. She is known to me for 10 years, follows with me in office. Pertinent PMHX includes: -CAD s/p PCI LAD 2007 -HTN -Chronic diastolic CHF -Von Willebrand's dz -Migraine headaches -B/l Knee replacements -H/o DVT/PE post op several years ago after knee replacement ALL: multiple, noted. Social hx: w/ children; non-smoker. ROS/HPI: 2-3 days of "band-like" pressure top of head, similar to previous migraines but less severe. Yesterday developed mild nausea and b/l visual changes seeing "pixelated crystals" in both eyes in the peripheral visual mccracken. She has also had palpitations for 3 weeks, recently completed a holter which was unremarkable. She had some chest pressure yesterday while coming to hospital, in setting of above sx. She has been participating in physical therapy lately using a treadmill with no anginal sx. She does have chronic MCADAMS. Tele here has APCs but otherwise NSR. Head CT and MRI brain done, both negative. Selected Entries 10/06/17 10/06/17 06:00 06:46 Temperature 98.4 F Blood Pressure 118/70 O2 Sat by Pulse 97 Oximetry (%) Weight 203 lb 3 oz Laboratory Tests 10/05/17 10/05/17 15:41 23:40 Troponin I < 0.03 < 0.02 Exam: Alert and oriented No gross neuro deficits No JVD or carotid bruits S1, 2. RRR. Chest w/ rales left base that clear w/ cough Abd obese, NT Ext with venodynes, and 1+ edema ECG: NSR, APCs. No acute ST changes. Labs: Laboratory Tests 10/05/17 10/05/17 10/05/17 15:41 15:41 23:40 WBC 8.4 Hct 38.4 Sodium 135 L Creatinine 0.8 Creatine Kinase 86 Troponin I < 0.03 < 0.02 IMP: Suspect occular migraine/ migraine variant w/ occular sx Chronic diastolic dysfx Chronic MCADAMS secondary to chronic diastolic CHF, obesity, deconditioned state CAD w/ remote PCI LAD 2007 REC: 1. Neuro evaluation; consider optho eval although symptoms are bilateral. 2. 3rd cardiac enzyme. Low suspicion for ACS. Suspect anxiety in setting of new visual symptoms. 3. Echo and stress test can be done this week as outpatient when headache/ visual changes improve.
[2017-10-06 09:30] LABS: ANION GAP 8 (8-16); BLOOD UREA NITROGEN 20 mg/dl (7-18); CHLORIDE 101 mmol/L (98-107); CO2 27 mmol/L (22-28); GLUCOSE,RANDOM 96 mg/dl (74-106); MAGNESIUM 2.1 mg/dL (1.8-2.4); POTASSIUM 3.9 mmol/L (3.5-5.1); SODIUM 136 mmol/L (136-145)
[2017-10-06 09:38] LABS: CREATININE < 0.8 mg/dl (0.6-1.3)
[2017-10-06] MEDS ORDERED: FUROSEMIDE 40 MG TABLET (FP) PO SCH ×2 (10:00)
[2017-10-06] MEDS ORDERED: ASPIRIN COATED 81 MG TABLET.EC PO SCH ×2 (10:00)
[2017-10-06] MEDS ORDERED: POTASSIUM CHLORIDE TABS 10 MEQ TABLET.ER (FP) PO SCH (10:00)
[2017-10-06] MEDS: metoPROLOL SUCCINATE 25 MG TAB.SR.24H (FP) PO SCH (10:09)
[2017-10-06 10:11] VITALS: BP 108/60; PULSE 80
[2017-10-06 12:12] LABS: CHOLESTEROL 201 mg/dl; HDL CHOLESTEROL 39 mg/dl (29-89); TRIGLYCERIDES 244 mg/dl (35-160)
--- NOTE | 2017-10-06 12:34 | CONSULT ---
Consult - text type - Consultation Consultation Note: NEUROLOGY CONSULTATION is greatly appreciated: Events and neuroimaging reviewed. Case discussed with ALYSSA Douglas last evening. 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 PMH sig for Von Willebrand's disease, HTN, hypothyroidism, Chol (intolerance to statins), ASHD, s/p stents and DVT, PE, s/p IVC filter (removed). Currently off A/C with recent 7 day monitoring neg for AFib. On metoprolol (25 BID), lasix, KCl, L-Thyroxin, ASA. Life-long history of migraine headaches with known visual (and olfactory, smells onions) auras in the past. Seen by me > 20 years ago for migraines. +FH of migraines in her mother and one daughter. Still has about 5 DRAPER's per month but these last 2-3 days each (Mean DRAPER frequency 12-15 d/month). Bitemporal pressure with nausea, photophobia and phonophobia. Yesterday, after 5 days of waxing and waning headache, had a central visual scintillating scotoma, B?L that gradually moved up and to the left with transient numbness in the left face. MRI and CT of brain (reviewed): Essentially normal with scattered, subcortical microvascular changes. Carotid duplex doppler: Min atheromatous change without sig stenosis or hemodynamic changes. ROS: Chronically poor sleep with persistent right aching knee pain at night. Improved by walking. H/O Bruxism. VIDA: No bruits. Cor reg. No head trauma. s/p B/L TKR NEURO: MS/Speech: Normal CN: II-XII normal including monocular and binocular confrontational visual mccracken. Motor: No drift or tremor. Normal strength, bulk, tone and reflexes. Toes downgoing. Coord: No FTN Dystaxia. Sensory: Normal. Romberg - Gait: Normal IMP: Migraine Headaches (Classical Migraines with Visual Aura). Restless Legs Syndrome/Insomnia. SUGGEST: Begin Topiramate 25 mg q HS x 2 days, then 25 mg BID x 5 days, then 50 mg PO BID after meals. Begin Pramipexole (.25 mg). 1/2 PO after dinner x 4 days then 1 PO q PM. Neurology f/u as out patient. Thank you very much, Carlos Sunshine MD
--- NOTE | 2017-10-06 13:55 | DS ---
Physical Exam: SUBJECTIVE: Patient seen and examined, pt reports feeling better,symptoms resolved. OBJECTIVE: Vital Signs Period Temp Pulse Resp BP Sys/Colin Pulse Ox Last 24 Hr 98.4 F-98.8 F 80-100 16-20 108-121/60-80 97-100 PHYSICAL EXAM GENERAL: The patient is awake, alert, and fully oriented, in no acute distress. HEAD: Normal with no signs of trauma. EYES: PERRL, extraocular movements intact, sclera anicteric, conjunctiva clear. ENT: Ears normal, nares patent, oropharynx clear without exudates, moist mucous membranes. NECK: Trachea midline, full range of motion, supple. LUNGS: Breath sounds equal, clear to auscultation bilaterally, no wheezes, no crackles, no accessory muscle use. HEART: Regular rate and rhythm, S1, S2 without murmur, rub or gallop. ABDOMEN: Soft, nontender, nondistended, normoactive bowel sounds, no guarding, no rebound, no hepatosplenomegaly, no masses. EXTREMITIES: 2+ pulses, warm, well-perfused, no edema. NEUROLOGICAL: Cranial nerves II through XII grossly intact. Normal speech, gait not observed. PSYCH: Normal mood, normal affect. SKIN: Warm, dry, normal turgor, no rashes or lesions noted. LABS Laboratory Results - last 24 hr 10/05/17 10/05/17 10/05/17 15:41 15:41 15:41 WBC 8.4 RBC 4.66 Hgb 12.9 Hct 38.4 MCV 82.2 MCH 27.7 MCHC 33.7 RDW 13.2 Plt Count 340 MPV 7.9 Neutrophils % 64.8 Lymphocytes % 24.2 Monocytes % 7.4 Eosinophils % 2.7 Basophils % 0.9 PT with INR 12.6 INR 1.13 Sodium 135 L Potassium 3.8 Chloride 99 Carbon Dioxide 30 H Anion Gap 6 L BUN 20 H Creatinine 0.8 Creat Clearance w eGFR > 60 Random Glucose 109 H Calcium 9.7 Magnesium Total Bilirubin 0.5 D AST 19 ALT 16 Alkaline Phosphatase 103 H Creatine Kinase 86 Troponin I < 0.03 Total Protein 7.1 Albumin 4.2 Triglycerides Cholesterol Total LDL Cholesterol HDL Cholesterol TSH 10/05/17 10/06/17 10/06/17 23:40 07:37 07:37 WBC RBC Hgb Hct MCV MCH MCHC RDW Plt Count MPV Neutrophils % Lymphocytes % Monocytes % Eosinophils % Basophils % PT with INR INR Sodium 136 Potassium 3.9 Chloride 101 Carbon Dioxide 27 Anion Gap 8 BUN 20 H Creatinine < 0.8 Creat Clearance w eGFR Random Glucose 96 Calcium 9.0 Magnesium 2.1 Total Bilirubin AST ALT Alkaline Phosphatase Creatine Kinase Troponin I < 0.02 < 0.03 Total Protein Albumin Triglycerides Cholesterol Total LDL Cholesterol HDL Cholesterol TSH 1.92 10/06/17 07:37 WBC RBC Hgb Hct MCV MCH MCHC RDW Plt Count MPV Neutrophils % Lymphocytes % Monocytes % Eosinophils % Basophils % PT with INR INR Sodium Potassium Chloride Carbon Dioxide Anion Gap BUN Creatinine Creat Clearance w eGFR Random Glucose Calcium Magnesium Total Bilirubin AST ALT Alkaline Phosphatase Creatine Kinase Troponin I Total Protein Albumin Triglycerides 244 H Cholesterol 201 Total LDL Cholesterol 113 H HDL Cholesterol 39 TSH HOSPITAL COURSE: Date of Admission:10/05/17 Date of Discharge: 10/06/17 Imaging *CT head negative for acute pathology *MRI brain normal study (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 The patient reportedly experienced visual disturbance first "centrally" in both eyes, and then in the right visual field of both eyes, which she described as a "pixilated crescent, from 6 to 9." on her way to the hospital she developed mild substernal chest pressure with SOB and mild loss of sensation circumferentially around her mouth. Imaging ruled out acute pathology, *Atypical chest pain/Palpitations" Serial cardiac enzymes negative,ACS ruled out. EKG: SR with PAC's, no St changes noted. pt was evaluated by cardiology Dr. Santamaria, rec out pt Echo and stress test once neurologically stable, will continue on ASA. *Neuro symptoms TIA v. CVA: Imaging ruled out acute pathology,pt was evaluated by neuro Dr. Sunshine,likely due to Migraine Headaches (Classical Migraines with Visual Aura),Restless Legs Syndrome/Insomnia, rec to Begin Topiramate 25 mg q HS x 2 days, then 25 mg BID x 5 days, then 50 mg PO BID after meals and Pramipexole (.25 mg). 1/2 PO after dinner x 4 days then 1 pill PO q PM and out patient neurology followup. *h/o PE: Will continue on ASA only due to the the hx of Von Willenbrand's disease. *Hypertension: BP stable, will continue on metoprolol. *Hyperlipidemia: Not on statin,abnormal fasting lipids, rec low fat diet and out pt f/u. *Coronary artery disease: Will continue metoprolol, ASA *Diastolic heart failure- Stable,will continue lasix, potassium *Von Willenbrand's disease: No acute issues, out pt hematology followup with Dr. Pablo *Psoriatic arthritis: stable,not on any meds *Hypothyroidism: TSH level normal, will continue on levothyroxine Minutes to complete discharge: 40 Discharge Summary Reason For Visit: HEADACHE AND VISION CHANGE Current Active Problems Chest pain (Acute) Headache (Acute) Vision changes (Acute) Condition: Stable - Instructions Diet, Activity, Other Instructions: Begin 1. Topiramate 25 mg q HS x 2 days, then 25 mg BID x 5 days, then 50 mg PO BID after meals. 2. Pramipexole (.25 mg) 1/2 PO after dinner x 4 days then 1 PO q PM. Neurology f/u as out patient. Referrals: Carlos Sunshine MD [Staff Physician] - 1 Month Kings Montes MD [Staff Physician] - 2 Weeks Mac Renner MD [Staff Physician] - 2 Weeks Disposition: HOME - Home Medications Comprehensive Discharge Medication List: Ambulatory Orders Metoprolol Succinate [Toprol XL -] 25 mg PO BID 02/02/14 Potassium Chloride [K-Dur -] 10 meq PO DAILY 11/07/14 Levothyroxine [Synthroid -] 25 mcg PO DAILY 12/19/15 Aspirin [Aspirin EC] 81 mg PO DAILY 06/25/16 Furosemide [Lasix -] 40 mg PO DAILY 06/25/16 Pramipexole Dihydrochloride [Mirapex -] 0.125 mg PO DAILY #30 tablet 10/06/17 Topiramate 25 mg PO DAILY #60 tablet 10/06/17 This patient is new to me today: Yes Date on this admission: 10/06/17 Emergency Visit: Yes ED Registration Date: 10/05/17 Care time: The patient presented to the Emergency Department on the above date and was hospitalized for further evaluation of their emergent condition. Critical Care patient: No - Discharge Referral Referred to [facility] No
--- NOTE | 2017-10-06 14:34 | EKG ---
Test Reason : Blood Pressure : / mmHG Vent. Rate : 095 BPM Atrial Rate : 095 BPM P-R Int : 176 ms QRS Dur : 092 ms QT Int : 374 ms P-R-T Axes : 047 006 023 degrees QTc Int : 469 ms SINUS RHYTHM WITH PREMATURE SUPRAVENTRICULAR COMPLEXES POSSIBLE LEFT ATRIAL ENLARGEMENT BORDERLINE ECG WHEN COMPARED WITH ECG OF 14-DEC-2015 08:55, PREMATURE SUPRAVENTRICULAR COMPLEXES ARE NOW PRESENT Confirmed by MD Tony, Ki ([id number]) on 10/06/2017 2:33:56 PM Referred By: GLEN Confirmed By:Ki Jimenez MD
== END 2017-10-06 13:55 | disposition home or self-care (01) ==
LOC: FER 14:41 → FM/S 19:15
PROVIDERS: ADMIT Internal Medicine; ATTEND Nurse Practitioner Family
PROC: 3E033GC Introduction of Other Therapeutic Substance into Peripheral Vein, Percutaneous Approach (ICD-10-PCS; principal; 2017-10-05)
DX: G43.109 Migraine with aura, not intractable, without status migrainosus (principal); H54.7 Unspecified visual loss; R07.9 Chest pain, unspecified; R00.2 Palpitations; I10 Essential (primary) hypertension; I25.10 Atherosclerotic heart disease of native coronary artery without angina pectoris; I50.30 Unspecified diastolic (congestive) heart failure; E78.5 Hyperlipidemia, unspecified; E03.9 Hypothyroidism, unspecified; D68.0 Von Willebrand disease; L40.50 Arthropathic psoriasis, unspecified; Z95.5 Presence of coronary angioplasty implant and graft; Z79.82 Long term (current) use of aspirin; Z87.891 Personal history of nicotine dependence; G25.81 Restless legs syndrome; G47.00 Insomnia, unspecified
CPT/HCPCS: 36415; 70450-TC; 70551-TC; 71046-TC-FY; 80048; 80053; 80061; 82550; 83721; 83735; 84443; 84484; 85025; 85610; 93005; 93880-TC; 96374; 99284-25; G0378

== ENCOUNTER 2019-05-19 10:35 | Emergency (ER) | payer OTHER, BC ==
[2019-05-19 10:40] VITALS: BP 126/78; PULSE 89; TEMP 99; BMI 34.4
--- NOTE | 2019-05-19 10:41 | PDOC ---
History of Present Illness - General Chief Complaint: Hematuria Stated Complaint: HEMATURIA, L FLANK PAIN Time Seen by Provider: 05/19/19 10:37 - History of Present Illness Initial Comments: 05/19/19 10:40 HPI: 68 y/o F with hx of HTN, HLD, CAD s/p stent (2007), diastolic heart failure, migraines, Von Willenbrand's disease, pulmonary embolism (05/2016, following knee surgery currently on ASA), psoriatic arthritis, hypothyroidism, nephrolithiasis (in her 20s) presenting with left flank pain and hematuria. She states 3 days ago she felt her symptoms with the flank pain and it has since radiated to LLQ and suprapubic region. Pain is 8/10 at its worst but imrpoved with tylenol. She states pain is worse with motion. She also reports end-stream hematuria of johanny red blood with associated dysuria and suprapubic discomfort. She denies fever, chills, chest pain, SOB, DRAPER, emesis, BPR. She reports occasional nausea due to pain. PMHx: as noted above ROS: as noted SHx: Denies tobacco use; no alcohol use; no rec drugs Allergies: NKDA ROS: GENERAL/CONSTITUTIONAL: No fever or chills. No weakness. HEAD, EYES, EARS, NOSE AND THROAT: No change in vision. No ear pain or discharge. No sore throat. CARDIOVASCULAR: No chest pain or shortness of breath RESPIRATORY: No cough, wheezing, or hemoptysis. GASTROINTESTINAL: +nausea; no vomiting, diarrhea or constipation. GENITOURINARY: + hematuriua and dysuria; frequency, or change in urination. MUSCULOSKELETAL: No joint or muscle swelling or pain. No neck or back pain. SKIN: No rash NEUROLOGIC: No headache, vertigo, loss of consciousness, or change in strength/ sensation. ENDOCRINE: No increased thirst. No abnormal weight change HEMATOLOGIC/LYMPHATIC: No anemia, easy bleeding, or history of blood clots. ALLERGIC/IMMUNOLOGIC: No hives or skin allergy. PE: GENERAL: Awake, alert, and fully oriented, no acute distress HEAD: No signs of trauma, normocephalic, atraumatic EYES: EOMI, sclera anicteric, conjunctiva clear ENT: Auricles normal inspection, hearing grossly normal, nares patent, oropharynx clear without exudates. Moist mucosa NECK: Normal ROM, no lymphadenopathy LUNGS: No increased work of breathing, symmetrical chest rise, clear to auscultation bilaterally, no wheezes, crackles or rhonchi HEART: Regular rate and rhythm, normal S1 and S2, no murmurs, peripheral pulses 2+ and equal bilaterally. ABDOMEN: Soft, nondistended, nontender, normoactive bowel sounds. No guarding, no rebound. No masses. + left CVAT MUSCULOSKELETAL: Normal inspection, FROM; left lumbar paraspinal ttp NEUROLOGICAL: Cranial nerves II through XII grossly intact. Normal speech, normal gait, no focal sensorimotor deficits SKIN: Warm, Dry, normal turgor, no rashes or lesions noted Past History - Past Medical History Allergies/Adverse Reactions: Allergies Allergy/AdvReac Type Severity Reaction Status Date / Time ciprofloxacin Allergy Severe Hives Verified 05/19/19 10:37 levofloxacin [From Levaquin] Allergy Severe angioedema Verified 05/19/19 10:37 shellfish derived Allergy Severe Difficulty Verified 05/19/19 10:37 Breathing atorvastatin Allergy Mild Rash Verified 05/19/19 10:37 methotrexate Allergy Mild Nausea Verified 05/19/19 10:37 Penicillins Allergy Mild Hives Verified 05/19/19 10:37 sulfamethoxazole Allergy Mild Rash Verified 05/19/19 10:37 [From Bactrim] trimethoprim [From Bactrim] Allergy Mild Rash Verified 05/19/19 10:37 atorvastatin calcium AdvReac Mild Rash Verified 05/19/19 10:37 [From Lipitor] pravastatin sodium AdvReac Mild Rash Verified 05/19/19 10:37 [From Pravachol] rosuvastatin [Rosuvastatin] AdvReac Mild Rash Verified 05/19/19 10:37 rosuvastatin calcium AdvReac Verified 05/19/19 10:37 [From Crestor] fish AdvReac Swelling Uncoded 05/19/19 10:37 Home Medications: Ambulatory Orders Metoprolol Succinate [Toprol XL -] 25 mg PO BID 02/02/14 Potassium Chloride [K-Dur -] 10 meq PO DAILY 11/07/14 Levothyroxine [Synthroid -] 25 mcg PO DAILY 12/19/15 Aspirin [Aspirin EC] 81 mg PO DAILY 06/25/16 Furosemide [Lasix -] 40 mg PO DAILY 06/25/16 Cyclobenzaprine HCl [Flexeril 10 mg] 10 mg PO TID PRN #12 tablet 05/19/19 Pravastatin Sodium [Pravachol (Nf)] 20 mg PO HS 05/19/19 Anemia: No Asthma: No Cancer: No Cardiac Disorders: Yes (VON WILLEBRAND'S,HAD CARDIAC CATH-STENT 2007) CVA: No COPD: No CHF: No Dementia: No Diabetes: No GI Disorders: No Disorders: No HTN: Yes Hypercholesterolemia: No Liver Disease: No Seizures: No Thyroid Disease: No Other medical history: KID STONES - Surgical History Abdominal Surgery: No Appendectomy: No Cardiac Surgery: Yes (CARDIAC STENT) Cholecystectomy: No Lung Surgery: No Neurologic Surgery: No Orthopedic Surgery: Yes (BILATERAL KNEE ATHROSCOPIES X2 EACH,RIGHT ROTATOR CUFF REPAIR) - Psycho Social/Smoking Cessation Hx Smoking Status: No Smoking History: Former smoker Have you smoked in the past 12 months: No Number of Cigarettes Smoked Daily: 0 If you are a former smoker, when did you quit?: 36YRS Information on smoking cessation initiated: No Hx Alcohol Use: Yes (RARE) Drug/Substance Use Hx: No Substance Use Type: None Hx Substance Use Treatment: No *Physical Exam - Vital Signs Last Vital Signs Temp Pulse Resp BP Pulse Ox 99 F 89 17 126/78 98 05/19/19 10:36 05/19/19 10:36 05/19/19 10:36 05/19/19 10:36 05/19/19 10:36 Medical Decision Making - Medical Decision Making 05/19/19 13:31 68 y/o F with hx of HTN, HLD, CAD s/p stent (2007), diastolic heart failure, migraines, Von Willenbrand's disease, pulmonary embolism (05/2016, following knee surgery currently on ASA), psoriatic arthritis, hypothyroidism, nephrolithiasis (in her 20s) presenting with left flank pain and hematuria associated with dysuria. VSS, AF. PE with left lumbar paraspinal ttp/CVAT. DDx includes UTI vs kidney stone vs bladder mass -ua, ucx -ct abd/pel 05/19/19 14:11 CT: IMPRESSION: No evidence of urinary tract calculi, obstructive uropathy or acute pathology within the abdomen or pelvis. Please see above discussion. UA with 3+hematuria and no nitrites or leuks discussed with patient results; likely MSK strain with hematuria which may need further workup; recommending conservative treatment and followup with urology Discharge - Discharge Information Problems reviewed: Yes Clinical Impression/Diagnosis: Acute left flank pain Hematuria Qualifiers: Hematuria type: unspecified type Qualified Code(s): R31.9 - Hematuria, unspecified Condition: Stable Disposition: HOME - Additional Discharge Information Prescriptions: Cyclobenzaprine HCl [Flexeril 10 mg] 10 mg PO TID PRN #12 tablet PRN Reason: Back Pain - Follow up/Referral Referrals: Byron Neil MD [Staff Physician] - - Patient Discharge Instructions Patient Printed Discharge Instructions: DI for Hematuria, DI for Musculoskeletal Pain Additional Instructions: Additional Instructions: Please return to the emergency department with any new or worsening symptoms or concerns. Please follow up with your primary care physician for re-evaluation of flank pain. Please followup with Dr Neil, the urologist we have provided in the paperwork for further workup of the hematuria. You may take tylenol 650-1000mg every 6-8 hours as needed for pain control. You may also take the flexeril that was prescribed 10mg three times a day as needed. Please be aware of sedative effects and avoid operating heavy machinery and driving under effects of medications - Post Discharge Activity
--- NOTE | 2019-05-19 10:51 | PDOC ---
Attending Attestation - Resident Resident Name: Glenroy Parks - ED Attending Attestation I have performed the following: I have examined & evaluated the patient, The case was reviewed & discussed with the resident, I agree w/resident's findings & plan, Exceptions are as noted - HPI HPI: 05/19/19 11:39 68y F hx of vWB, cad, chf, htn, remote kideny stones presents with a complaint of sevearl weeks of L flank pain. Pt notse the pain felt like a soreness after picking her grand child up but was more persistent - she had gone to urgent care and was thought to have a UTI, was started on abx, but was d/c when cultures ca,e back negative. pt notes the pain had resolved for a day before coming back. Pt notse the pain is constant, non positional, no associated fever/ chills, vomiting, cp, sob, dysuria, diarrhea. Pt notes she had some heaturia at the end of urine stream nad has some intermittent lower abd pain. pt denies any radiation of the pain down her legs. PMD: Dr. Skelton GENERAL: The patient is awake, alert, and fully oriented, Nontoxic - in no acute distress. HEAD: Normocephalic, atraumatic. EYES: extraocular movements intact, sclera anicteric, conjunctiva clear. ENT: Normal voice, Moist mucous membranes. NECK: Normal range of motion, supple LUNGS: Breath sounds equal, clear to auscultation bilaterally. No wheezes, no rhonchi, no rales. HEART: Regular rate and rhythm, normal S1 and S2 without murmur, rub or gallop. ABDOMEN: Soft, nontender, No guarding, no rebound. No CVA tenderness, Mild paraspinal tenderness in the left lumar region EXTREMITIES: Normal range of motion, no edema. NEUROLOGICAL: No facial assymetry, Normal speech, PSYCH: Normal mood, normal affect. SKIN: Warm, Dry, normal turgor, Differential for the patient's symptoms includes possible UTI, Fran, kidney stone, MSK pain Will obtain UA, cultures were obtained CT of the abdomen to rule out kidney stone Tylenol for pain - Physicial Exam PE: 05/19/19 13:30 see above - Medical Decision Making 05/19/19 13:29 CT was negative for acute process. UA noted for hematuria I suspect patient's pain likely secondary to MSK pain will treat supportively. Will refer the patient to her doctor to follow-up for work-up of her hematuria.
[2019-05-19 11:16] LABS: EPITHELIAL CELLS FEW /hpf
== END 2019-05-19 13:42 | disposition home or self-care (01) ==
LOC: FER 10:35
DX: R10.32 Left lower quadrant pain (principal); R31.9 Hematuria, unspecified; I10 Essential (primary) hypertension; E78.5 Hyperlipidemia, unspecified; I25.10 Atherosclerotic heart disease of native coronary artery without angina pectoris; D68.0 Von Willebrand disease; Z00.00 Encounter for general adult medical examination without abnormal findings; E03.9 Hypothyroidism, unspecified; L40.50 Arthropathic psoriasis, unspecified; N20.0 Calculus of kidney; Z88.8 Allergy status to other drugs, medicaments and biological substances; Z91.013 Allergy to seafood
CPT/HCPCS: 74176-TC; 81003; 81015; 87086; 99282-25

== ENCOUNTER 2019-06-24 08:40 | Day surgery (SDC) | payer OTHER, BC ==
[~2019-06-24 08:40] MED LIST: DESMOPRESSIN ACETATE 4 MCG/ML AMP IVPB ONE; ceFAZolin SODIUM 1 GM VIAL IVPB ONE
[2019-06-24 09:25] VITALS: BMI 35.2
[2019-06-24] MEDS ORDERED: DESMOPRESSIN ACETATE 4 MCG/ML AMP IVPB ONE (09:35)
[2019-06-24] MEDS ORDERED: PROPOFOL 20 ML ONE (09:37)
[2019-06-24] MEDS ORDERED: SUCCINYLCHOLINE CHLORIDE 200 MG/10 ML SYRINGE ONE (09:42)
[2019-06-24] MEDS ORDERED: LIDOCAINE HCL/PF 2% SDV 5ML VIAL ONE (10:14)
[2019-06-24] MEDS ORDERED: ceFAZolin SODIUM 1 GM VIAL IVPB ONE (10:15)
[2019-06-24] MEDS ORDERED: ceFAZolin SODIUM 1 GM VIAL ONE (10:22)
--- NOTE | 2019-06-24 11:04 | OP ---
Operative Note - Note: Operative Date: 06/24/19 Pre-Operative Diagnosis: Bladder tumor Operation: Cysto TURBT Findings: Large tumor noted on the left lat wall near the trigone very close to left ureteral orifice. Anothe massive tumor in the left side close to the dome in the left lat. wall. Severe cystitic changes through out the bladder. Post-Operative Diagnosis: Same as Pre-op Surgeon: Christine Hicks Anesthesia: General Specimens Removed: Bladder tumor Estimated Blood Loss (mls): 10 Drains & Tubes with Location: 20 F kuhn Operative Report Dictated: Yes
[2019-06-24] MEDS ORDERED: ONDANSETRON 4 MG/2 ML VIAL IVPUSH PRN (12:31)
[2019-06-24] MEDS ORDERED: oxyCODONE HCL 5 MG TABLET PO PRN (12:31)
[2019-06-24] MEDS ORDERED: LACTATED RINGERS SOLUTION 1,000 ML IV SCH (12:45)
[2019-06-24] MEDS ORDERED: oxyCODONE HCL 5 MG TABLET ONE (13:17)
[2019-06-24] MEDS ORDERED: oxyCODONE HCL 5 MG TABLET PO ONE (13:20)
[2019-06-24 13:29] VITALS: TEMP 98.4
[2019-06-24 15:07] VITALS: BP 104/66; PULSE 125
--- NOTE | 2019-06-25 09:10 | PATH ---
Surgical Pathology Report Patient Name: MADDY COOK [facility]. Rec. #: [id number] /Age/Gender: 1950 (Age: 68) / F Account: [id number] Location: [facility] SURGICAL Taken: 06/24/2019 Received: 06/24/2019 Reported: 06/25/2019 Physicians: Christine Hicks M.D. 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 NO MUSCULARIS PROPRIA IDENTIFIED. NO FLAT CARCINOMA IN SITU (CIS) IDENTIFIED. Electronically Signed Suzette Fisher M.D. Addendum Reported: 06/25/2019 Addendum Diagnosis Findings discussed with Dr. Young, 06/25/19. Suzette Fisher M.D. Gross Description Received in formalin labeled "bladder tumor," is a 3.5 x 2.0 x 0.3 cm aggregate of rice pink soft tissue fragments. The formalin is filtered and the specimen is entirely submitted in 2 cassettes. DL/06/24/2019 saudi/06/24/2019
--- NOTE | 2019-06-25 11:44 | OP ---
DATE OF OPERATION: 06/24/2019 SURGEON: Christine Hicks MD ANESTHESIA: General. PREOPERATIVE DIAGNOSIS: Gross hematuria and bladder tumor. POSTOPERATIVE DIAGNOSIS: Gross hematuria and bladder tumor. PROCEDURE: Cystoscopy and transurethral resection of the bladder tumor. FINDINGS: One large tumor was noted in the left lateral wall just above the trigone and very close to the left ureteral orifice. Another large tumor noted in the left lateral wall again near the dome of the bladder. changes noted throughout the bladder. DESCRIPTION OF PROCEDURE: Patient in lithotomy position under anesthesia was prepped and draped in the usual manner. Using 26 George resectoscope, bladder was inspected and the tumor identified. First, the tumor close to the left ureteral orifice was resected and fulgurated. Severe bleeding encountered throughout the procedure. Proper fulguration could not be carried out due to the proximity of the ureteral orifice. Then the tumor of the left lateral wall near the dome of the bladder was resected. The resection was very deep and the base was well fulgurated. All the resuscitated tissues removed using Ellik evacuator. A 20 Bai was left indwelling. Patient tolerated the procedure well and left the operating room under satisfactory condition. Andrea [id number]
== END 2019-06-24 14:25 | disposition home or self-care (01) ==
LOC: JASU-SURG 08:40
PROVIDERS: ATTEND Urology
PROC: 0T5B8ZZ Destruction of Bladder, Via Natural or Artificial Opening Endoscopic (ICD-10-PCS; principal; 2019-06-24 11:30)
DX: C67.9 Malignant neoplasm of bladder, unspecified (principal); R31.0 Gross hematuria
CPT/HCPCS: 94760; J2597

== ENCOUNTER 2021-02-11 19:53 | Emergency (ER) | payer OTHER, BC ==
[2021-02-11 19:58] VITALS: BP 121/79; PULSE 106; TEMP 98.2; BMI 34.4
== END 2021-02-11 22:30 | disposition home or self-care (01) ==
LOC: JER 19:53
DX: I83.892 Varicose veins of left lower extremity with other complications (principal)
CPT/HCPCS: 99281-25

== ENCOUNTER 2022-12-24 05:34 | Day surgery (SDC) | payer OTHER, BC ==
[2022-12-20 12:57] VITALS: BMI 34.9
[2022-12-24] MEDS ORDERED: DESMOPRESSIN ACETATE 4 MCG/ML AMP IVPB ONE ×2 (08:00→08:41)
[2022-12-24] MEDS ORDERED: DESMOPRESSIN ACETATE 30 MCG in SODIUM CHLORIDE 50 ML IVPB ONE (08:30)
[2022-12-24] MEDS ORDERED: DESMOPRESSIN ACETATE 20 MCG in SODIUM CHLORIDE 50 ML IVPB ONE (09:15)
[2022-12-24 10:33] VITALS: TEMP 97.9
[2022-12-24 11:14] VITALS: BP 127/70; PULSE 84; RESP 17
== END 2022-12-24 11:18 | disposition home or self-care (01) ==
LOC: JASU-ENDO 05:34
PROVIDERS: ATTEND Internal Medicine Gastroenterology
PROC: 0DBN8ZX Excision of Sigmoid Colon, Via Natural or Artificial Opening Endoscopic, Diagnostic (ICD-10-PCS; 2022-12-24)
PROC: 0DBP8ZX Excision of Rectum, Via Natural or Artificial Opening Endoscopic, Diagnostic (ICD-10-PCS; principal; 2022-12-24 10:00)
DX: Z12.11 Encounter for screening for malignant neoplasm of colon (principal); K62.1 Rectal polyp; D12.5 Benign neoplasm of sigmoid colon; Z80.0 Family history of malignant neoplasm of digestive organs
CPT/HCPCS: 88305-TC; J2597

== ENCOUNTER 2023-01-15 14:04 | Emergency (ER) | payer OTHER, BC ==
[2023-01-15 14:09] VITALS: BMI 34.4
[2023-01-15 16:27] LABS: PH,URINE 5.5 (5.0-8.0); URINE APPEARANCE CLEAR; URINE BILIRUBIN NEGATIVE (NEGATIVE); URINE COLOR YELLOW; URINE GLUCOSE (UA) NEGATIVE (NEGATIVE); URINE KETONE NEGATIVE (NEGATIVE); URINE LEUK ESTERASE NEGATIVE (NEGATIVE); URINE NITRITE NEGATIVE (NEGATIVE); URINE PROTEIN NEGATIVE (NEGATIVE)
[2023-01-15 16:34] LABS: INR 1.31 (0.83-1.09); PROTHROMBIN TIME (PATIENT) 15.1 SEC (9.7-13.0)
[2023-01-15 16:37] LABS: ACTIVATED PTT 27.9 SECONDS (25.2-36.5)
[2023-01-15 16:51] LABS: POTASSIUM 4.6 mmol/L (3.5-5.1)
[2023-01-15 16:53] LABS: CALCIUM 8.7 mg/dL (8.5-10.1)
[2023-01-15 16:54] LABS: ALBUMIN 3.3 g/dl (3.4-5.0); BLOOD UREA NITROGEN 22.7 mg/dL (7-18)
[2023-01-15 16:57] LABS: CREATININE 0.9 mg/dL (0.55-1.3)
[2023-01-15 16:58] LABS: TOT PROT 6.6 g/dl (6.4-8.2)
[2023-01-15 16:59] LABS: BILIRUBIN,TOTAL 0.4 mg/dL (0.2-1)
[2023-01-15 17:55] LABS: EOS % 6.1 % (0-4.5); LYMPH % 23.8 % (8-40); MCH 27.4 pg (25.7-33.7); MCHC 32.1 g/dl (32.0-36.0); MEAN CELL VOLUME 85.2 fl (80-96); MEAN PLT VOLUME 8.9 fl (7.5-11.1); MONO % 8.9 % (3.8-10.2); NEUT % 60.2 % (42.8-82.8); PLATELET COUNT 330 10^3/uL (134-434); RBC 3.64 M/mm3 (3.60-5.2); RDW 14.2 % (11.6-15.6)
[2023-01-15 18:08] VITALS: BP 123/53; PULSE 71; RESP 15; TEMP 97.6
[2023-01-15] MEDS ORDERED: AZITHROMYCIN 250 MG TABLET PO ONE (18:39)
[2023-01-15] MEDS ORDERED: AMOX TR/POT CLAV 875MG/125MG TABLETS (FP) PO ONE (18:41)
[2023-01-15] MEDS ORDERED: AMOX TR/POT CLAV 875MG/125MG TABLETS (FP) ONE (19:31)
[2023-01-15] MEDS ORDERED: AZITHROMYCIN 500 MG TABLET ONE (19:32)
== END 2023-01-15 19:36 | disposition home or self-care (01) ==
LOC: JER 14:04
DX: R06.09 Other forms of dyspnea (principal); J18.9 Pneumonia, unspecified organism; Z20.822 Contact with and (suspected) exposure to COVID-19
CPT/HCPCS: 0241U-QW; 36415; 71045-TC-FY; 80053; 81003; 84484; 85025; 85610; 85730; 93005; 93010; 99285-25

== ENCOUNTER 2024-05-30 11:18 | Emergency (ER) | payer OTHER, BC ==
[2024-05-30 11:40] VITALS: BP 122/73; PULSE 101; RESP 20; BMI 33.4
[2024-05-30] MEDS ORDERED: ALBUTEROL SO4 2.5/IPRATROPIUM 0.5 INH SOL 3 ML VIAL.NEB. NEB ONE (12:15)
[2024-05-30] MEDS: SODIUM CHLORIDE FOR INHALATION 3 ML VIAL.NEB IH ONE (12:18)
[2024-05-30] MEDS: ALBUTEROL SO4 2.5/IPRATROPIUM 0.5 INH SOL 3 ML VIAL.NEB. NEB ONE (12:18)
[2024-05-30] MEDS ORDERED: IBUPROFEN 600 MG TABLET (FP) PO ONE (13:12)
[2024-05-30] MEDS: IBUPROFEN 600 MG TABLET (FP) PO ONE (13:14)
[2024-05-30 13:39] VITALS: TEMP 99.6
== END 2024-05-30 15:40 | disposition home or self-care (01) ==
LOC: JERFT 11:18
PROC: 3E0F7GC Introduction of Other Therapeutic Substance into Respiratory Tract, Via Natural or Artificial Opening (ICD-10-PCS; principal; 2024-05-30)
DX: R09.81 Nasal congestion (principal); R05.9 Cough, unspecified; J06.9 Acute upper respiratory infection, unspecified; R06.02 Shortness of breath
CPT/HCPCS: 71046-TC-FY; 99284-25

== ENCOUNTER 2024-11-20 14:21 | Emergency (ER) | payer OTHER, BC ==
[2024-11-20 14:44] VITALS: TEMP 98.7; BMI 33.4
[2024-11-20 15:48] LABS: ABSOLUTE IMMATURE GRANULOCYTES 0.06 x10^3/uL (0.0-0.031); BASOPHILS # 0.06 x10^3/uL (0.01-0.08); EOSINOPHIL % 3.7 % (0.7-5.8); EOSINOPHILS # 0.27 x10^3/uL (0.04-0.36); HEMATOCRIT 36.7 % (34.1-44.9); HEMOGLOBIN 11.6 g/dL (11.2-15.7); MCHC 31.6 g/dl (32.2-35.5); MEAN CELL VOLUME 87.6 fl (79.4-94.8); MEAN PLT VOLUME 9.5 fl (9.4-12.3); MONOCYTE # 0.96 x10^3/uL (0.24-0.86); MONOCYTE % 13.1 % (4.7-12.5); PLATELET COUNT 284 x10^3/uL (182-369); RDW 14.1 % (12.4-16.6)
[2024-11-20 15:55] LABS: INR 1.1 (0.83-1.09)
[2024-11-20 15:58] LABS: ACTIVATED PTT 28.2 SECONDS (25.2-36.5)
[2024-11-20 16:12] LABS: ALBUMIN 3.6 g/dl (3.4-5.0); BLOOD UREA NITROGEN 11.8 mg/dL (7-18); CALCIUM 9.5 mg/dL (8.5-10.1)
[2024-11-20 16:17] LABS: BILIRUBIN,TOTAL 0.4 mg/dL (0.2-1); TOT PROT 6.9 g/dl (6.4-8.2)
[2024-11-20 16:20] LABS: N-TERMINAL BNP 342.6 pg/ml (5-450)
[2024-11-20 16:55] LABS: ERYTHROCYTE SEDIMENTATION RATE 20 mm/hr (0-30)
[2024-11-20 18:54] VITALS: BP 148/79; PULSE 81; RESP 18
== END 2024-11-20 19:06 | disposition home or self-care (01) ==
LOC: JER 14:21
DX: R59.1 Generalized enlarged lymph nodes (principal); R22.1 Localized swelling, mass and lump, neck; R60.1 Generalized edema
CPT/HCPCS: 0241U-QW; 36415; 70491-TC; 71045-TC-FY; 71275-TC; 80053; 83880; 84484; 85025; 85610; 85651; 85730; 86850; 86900; 86901; 93005; 93010; 93970-TC; 99285-25; Q9967